=== PATIENT | male | born 1990 | race Caucasian/White ===

== ENCOUNTER 2021-11-01 17:13 | Emergency (ER) | payer BC ==
[~2021-11-01] VITALS: Ht 185.4 cm; Wt 117.3 kg
[2021-11-01] MEDS ORDERED: KETOROLAC 30 MG/ML VIAL. IVP ONE (19:15)
[2021-11-01] MEDS ORDERED: IV NORMAL SALINE 1000ML BAG 1,000 ML IV ONE (19:15)
--- NOTE | 2021-11-01 19:23 | PHYS DOC ---
Past Medical History Additional Past Medical Histor: Hernia Past Surgical History: Other Additional Past Surgical Histo: Hernia repair, bilateral shoulder repair, gland removal from base of spine Smoking Status: Never Smoker Alcohol Use: Occasionally General Adult EDM: Chief Complaint: GI PROBLEM HPI: HPI: Patient is 31-year-old male who presents emergency department complaint of umbilical pain since this past Saturday. Patient reports a history of umbilical hernia repair 8 years ago. Patient reports similar pain to when he had a strangulated hernia 8 years ago. Patient denies fever or chills, denies nausea, vomiting, diarrhea. Patient reports he ate some pretzels while in the waiting room and does not feel nauseated nor has he vomited. Patient denies seeing blood in his stool or in his urine. Patient reports normal bowel movement today, denies increased urinary frequency, urinary burning, urinary pressure. Patient denies pain to his testicles. Patient denies lesions or rashes to his genitals. Patient denies back pain. Patient denies other physical complaints or physical concerns. Patient reports his pain is in 8 or 9 out of 10. Review of Systems: Review of Systems: 14 body systems of review of systems have been reviewed. See HPI for pertinent positives and negative responses, otherwise all other systems are negative, nonpertinent or noncontributory. Constitutional: Negative except as outlined in HPI above. Skin: Negative except as outlined in HPI above. Eyes: Negative except as outlined in HPI above. HENT: Negative except as outlined in HPI above. Respiratory: Negative except as outlined in HPI above. Cardiovascular: Negative except as outlined in HPI above. GI: Negative except as outlined in HPI above. : Negative except as outlined in HPI above. Musculoskeletal: Negative except as outlined in HPI above. Integument: Negative except as outlined in HPI above. Neurologic: Negative except as outlined in HPI above. Endocrine: Negative except as outlined in HPI above. Lymphatic: Negative except as outlined in HPI above. Psychiatric: Negative except as outlined in HPI above. Heart Score: C/O Chest Pain: No Risk Factors: Risk Factors: DM, Current or recent (<one month) smoker, HTN, HLP, family history of CAD, obesity. Risk Scores: Score 0 - 3: 2.5% MACE over next 6 weeks - Discharge Home Score 4 - 6: 20.3% MACE over next 6 weeks - Admit for Clinical Observation Score 7 - 10: 72.7% MACE over next 6 weeks - Early Invasive Strategies Allergies: Allergies: Allergies Coded Allergies Type Severity Reaction Last Updated Verified No Known Drug Allergies 11/01/21 No Physical Exam: PE: Constitutional: Well developed, well nourished, no acute distress, non-toxic appearance. 31-year-old male appears uncomfortable however remains in no apparent distress. HENT: Normocephalic, atraumatic. Eyes: Conjunctiva normal, no discharge. Neck: Normal range of motion, no stridor. Cardiovascular: No cyanosis appreciated, distal cap refill less than 2 seconds. Lungs & Thorax: Patient is in no respiratory distress, no audible adventitious lung sounds appreciated. Abdomen: Nontender, no abnormalities noted. Erythema with clearly demarcated borders around umbilicus. No masses appreciated per palpation, normal bowel sounds all 4 quadrants. There was lint debris in navel that was removed with cotton applicator swab. The skin is intact. No hernia appreciated. No lesions, skin is intact. No palpable abscess appreciated. No induration appreciated. Patient is obese with BMI of 34.1. Skin: Warm, dry, no erythema, no rash. See abdomen section for focused skin examination. Back: No tenderness, no deformities. Extremities: No tenderness, no cyanosis, no clubbing, ROM intact, no edema. Neurologic: Alert and oriented X 3, normal motor function, normal sensory function, no focal deficits noted. Psychologic: Affect normal, judgement normal, mood normal. Current Patient Data: Labs: Laboratory Tests Test 11/01/21 19:20 11/01/21 19:55 White Blood Count 9.1 x10^3/uL Red Blood Count 5.08 x10^6/uL Hemoglobin 15.5 g/dL Hematocrit 45.1 % Mean Corpuscular Volume 89 fL Mean Corpuscular Hemoglobin 30 pg Mean Corpuscular Hemoglobin Concent 34 g/dL Red Cell Distribution Width 13.5 % Platelet Count 171 x10^3/uL Neutrophils (%) (Auto) 65 % Lymphocytes (%) (Auto) 23 % Monocytes (%) (Auto) 10 % Eosinophils (%) (Auto) 1 % Basophils (%) (Auto) 1 % Neutrophils # (Auto) 5.9 x10^3/uL Lymphocytes # (Auto) 2.1 x10^3/uL Monocytes # (Auto) 0.9 x10^3/uL Eosinophils # (Auto) 0.1 x10^3/uL Basophils # (Auto) 0.0 x10^3/uL Sodium Level 143 mmol/L Potassium Level 3.9 mmol/L Chloride Level 103 mmol/L Carbon Dioxide Level 28 mmol/L Anion Gap 12 Blood Urea Nitrogen 14 mg/dL Creatinine 1.0 mg/dL Estimated GFR (Cockcroft-Gault) 86.1 BUN/Creatinine Ratio 14 Glucose Level 141 mg/dL Calcium Level 8.9 mg/dL Total Bilirubin 0.4 mg/dL Aspartate Amino Transf (AST/SGOT) 17 U/L Alanine Aminotransferase (ALT/SGPT) 52 U/L Alkaline Phosphatase 85 U/L C-Reactive Protein, Quantitative 10.0 mg/L Total Protein 7.3 g/dL Albumin 3.8 g/dL Albumin/Globulin Ratio 1.1 Lactic Acid Level 0.8 mmol/L Current Medications Medications (Trade) Dose Ordered Sig/Citlalli Route PRN Reason Start Time Stop Time Status Last Admin Dose Admin Sodium Chloride 1,000 ml @ 1,000 mls/hr 1X ONCE IV 11/01/21 19:15 11/01/21 20:14 DC 11/01/21 19:53 Ketorolac Tromethamine (Toradol 30mg Vial) 30 mg 1X ONCE IVP 11/01/21 19:15 11/01/21 19:16 DC 11/01/21 19:52 Iohexol (Omnipaque 300 Mg/ml) 75 ml 1X ONCE IV 11/01/21 20:15 11/01/21 20:16 DC Info (CONTRAST GIVEN -- Rx MONITORING) 1 each PRN DAILY PRN MC SEE COMMENTS 11/01/21 20:15 11/01/21 21:32 DC Iohexol (Omnipaque 300 Mg/ml) 100 ml STK-MED ONCE .ROUTE 11/01/21 20:07 11/01/21 20:07 DC Lidocaine/ Epinephrine (LIDOCAINE 1%-EPI 1:100,000 Multi-Dose) 20 ml 1X ONCE INJ 11/01/21 21:00 11/01/21 21:01 DC 11/01/21 21:00 Trimethoprim/ Sulfamethoxazole (Bactrim Ds) 1 tab 1X ONCE PO 11/01/21 21:00 11/01/21 21:01 DC 11/01/21 21:01 Bacitracin (Bacitracin Zinc Oint Pkt) 1 pkt 1X ONCE TP 11/01/21 21:30 11/01/21 21:31 DC Vital Signs: Vital Signs Date Time Temp Pulse Resp B/P (MAP) Pulse Ox O2 Delivery O2 Flow Rate FiO2 11/01/21 17:20 98.1 84 18 172/115 (134) 96 Room Air 98.1 EKG: EKG: [] Radiology/Procedures: Radiology/Procedures: REASON: Umbilical pain rule out strangulated hernia PROCEDURE: CT ABD PELV W/ IV CONTRST ONLY EXAM: CT Abdomen and Pelvis with IV contrast CLINICAL HISTORY: Umbilical pain rule out strangulated hernia COMPARISON: none TECHNIQUE: Helical CT of the abdomen and pelvis was performed following the administration of intravenous contrast. Axial, coronal and sagittal reformatted images were generated. PQRS compliance statement - One or more of the following individualized dose reduction techniques were utilized for this study: 1. Automated exposure control 2. Adjustment of the mA and/or kV according to patient size 3. Use of iterative reconstruction technique FINDINGS: Lower Chest: Lung bases are clear. Abdomen and Pelvis: Liver, gallbladder, spleen and adrenal glands are unremarkable. Pancreas is unremarkable. No biliary dilatation. Symmetric nephrograms. No focal renal lesion. No hydronephrosis. No hydroureter. Bladder is unremarkable. Moderate colonic stool content. No small or large bowel dilatation. No bowel obstruction. No abdominal or pelvic lymphadenopathy. Abdominal pelvic ascites. A 2.9 x 1.8 x 1.4 cm peripherally enhancing low attenuating collection seen in the periumbilical region suspicious for abscess or phlegmon. Associated infiltration seen. Bones: No aggressive osseous lesion is seen. IMPRESSION: Small fluid collection with associated infiltration is seen in the periumbilical region suspicious for small abscess or phlegmon. No ventral abdominal hernia is identified. Electronically signed by: Eliot Greco MD (11/01/2021 8:36 PM) [facility] Course & Med Decision Making: Course & Med Decision Making Pertinent Labs and Imaging studies reviewed. (See chart for details) 31-year-old male, vital signs reviewed, presents to the emergency department soon umbilicus pain. Physical examination concerning for cellulitic infection of abdomen focused around umbilicus versus other abdominal process, will order CBC, CMP, CRP, 1 L normal saline, saline lock, 30 mg Toradol, CT abdomen pelvis with IV contrast. Will reevaluate after period of time. Patient has returned from CT, pending results, reevaluation of the patient, patient remains nontoxic in appearance, no apparent distress, patient reports pain relief at rest however does elicit a 6-7 pain when trying to sit up or stand. Discussed with patient pending CT results will review when completed. CT results nonconcerning for ventral hernia however does find area of fluid abscess versus phlegmon consistent with area of concern of abdomen just superior to umbilicus. ED attending physician Dr. Delcid recommended consulting with general surgeon to review case. Called and discussed patient case and ED work-up with general surgeon Dr. Minerva zabala who recommended I&D procedure. Reviewed Dr. Gorman's recommendations with ED attending physician Dr. Delcid. Dr. Delcid examined patient with bedside ultrasound, is agreeable with Dr. Gorman's recommendations. Discussed ED planning for I&D procedure with patient who is amenable to I&D procedure. See I&D note. There was no purulent material expressed or found during I&D procedure, incision site cleansed and dressed with bacitracin and bandage by ED nursing staff. discussed with patient findings, diagnosis phlegmon of subcu tissue abdomen to superior to umbilicus. Will start on Bactrim DS, pain medications, discussed strict follow-up with primary care when patient returns home to his state of residence this coming Saturday. Discussed strict return to ER precautions and concerns. Discussed wound care of incision site. Discussed signs and symptoms of wound healing process, worsening of symptoms. Patient denies pain of the abdominal infection site. All patient questions were reviewed and answered. P atient gave verbal understanding of and is amenable to ED discharge planning. Discussed with the patient all findings and diagnostic testing as well as the need to follow-up with their primary care provider for further evaluation and treatment or return to the ED if any new or worsening symptoms. Strict return precautions were also discussed at length, the patient voiced understanding and agreement with the discharge planning. The patient was nontoxic in appearance, in no apparent distress, and hemodynamically stable at the time of disposition. Dragon Disclaimer: Dragon Disclaimer: This electronic medical record was generated, in whole or in part, using a voice recognition dictation system. Incision and Drainage Time: 2100 Confirmed : Patient, procedure, side, and site correct. Consent: Patient has given verbal consent for I&D procedure of possible abscess just superior to umbilicus at 12 o'clock position.. Indication: CT result concerning for subcu abscess versus phlegmon. Performed by: Morris Turner CONSUMER AFFAIRS MANAGER-C Supervision: Dr. Delcid was available for consult regarding the critical aspects of the procedure, incision, and post procedure exam. Preprocedure exam: Circulation, motor, and sensory intact. Procedural sedation: Not indicated. Description Location: Abdomen just superior to umbilicus 12 o'clock position. Anesthesia: Achieved with 3 cc 1% lidocaine with epinephrine. Preparation: Sterile field established, skin prepped with Betadine solution. Procedure The patient was positioned appropriately. An incision was then made over the area of concern guided by bedside ultrasound. Using a #11 blade scalpel. Technique: No fluid collection found during manually decompression, wound pro bed, no fluid collection found with decompression attempt of loculations with curved forcep. Drainage : Scant amount of serosanguineous fluid expressed, there was no purulent material expressed. Post procedure exam : Circulation, motor, sensory examination intact. Patient tolerated : Well. Complications: No purulent material expressed, most likely phlegmon. Follow-up: Home care instructions given. Total time: 15 minutes. Departure Departure Impression: Primary Impression: Phlegmon Disposition: 01 HOME / SELF CARE / HOMELESS Condition: GOOD Referrals: NO PCP (PCP) Patient Instructions: Wound Care, [id number] Additional Instructions: You were seen today in the emergency department for pain around your bellybutton area. Lab work was drawn and did not show concerning findings of systemic infectious process. There was some concern you may have a hernia however the CT scan revealed an infection just above your bellybutton opening. This was expl ored with a scalpel incision after injecting anesthetic pain medication, there was no infectious abscess however there is still a localized infectious process that we call a phlegmon. You were started on an antibiotic that you will take twice a day for the next 10 days. I am prescribing you pain medications for your abdominal discomfort. I am also prescribing you some Polysporin that you will place over the wound that was created during the exploration of this infection. Please cleanse 3 times daily with soap and water and apply the antibiotic ointment and a bandage until healed. It is very important that you follow-up with your primary care physician when you return home to your state of residence this weekend. Please return to the emergency department for worsening symptoms or other concerns. Thank you for visiting our Emergency Department. It was a pleasure taking care of you today in the emergency department and we appreciate you trusting us with your care. If any additional problems come up don't hesitate to return to visit us. Please follow up with your primary care provider so they can plan additional care if needed and know about the problem that you had. If symptoms worsen come back to the Emergency Department. Any concerning symptoms that start such as chest pain, shortness of air, weakness or numbness on one side of the body, running high fevers or any other concerning symptoms return to the ER. EMERGENCY DEPARTMENT GENERAL DISCHARGE INSTRUCTIONS Thank you for coming to [facility] Emergency Department (ED) today and trusting us with you care. We trust that you had a positive experience in our Emergency Department. If you wish to speak to the department management, you may call the Director at [phone]. YOUR FOLLOW UP INSTRUCTIONS ARE FOLLOWS: 1. Do you have a private Doctor? If you do not have a private doctor, please ask for a resource list of physicians or clinics that may be able to assist you with follow up care. 2. The Emergency Physicain has interpreted your x-rays. The X-Ray specialist will also review them. If there is a change in the findings, you will be notified in 48 hours when at all possible. 3. A lab test or culture has been done, your results will be reviewed and you will be notified if you need a change in treatment. ADDITIONAL INSTRUCTIONS AND INFORMATION: 1. Your care today has been supervised by a physician who is specially trained in emergency care. Many problems require more than one evaluation for a complete diagnosis and treatment. We recommend that you schedule your follow up appointment as recommended to ensure complete treatment of you illness or injury. If you are unable to obtain follow up care and continue to have a problem, or if your condition worsens, we recommend that you return to the ED. 2. We are not able to safely determine your condition over the phone nor are we able to give sound medical advice over the phone. For these safety reasons, if you call for medical advice we will ask you to come to the ED for further evaluation. 3. If you have any questions regarding these discharge instructions please call the ED at [phone]. SAFETY INFORMATION: In the interest of safety, wellness, and injury prevention; we encourage you to wear your sealbelt, if you smoke; quite smoking, and we encourage family to use a protective helmet for bicycling and other sporting events that present an increased risk for head injury. IF YOUR SYMPTOMS WORSEN OR NEW SYMPTOMS DEVELOP, OR YOU HAVE CONCERNS ABOUT YOUR CONDITION; OR IF YOUR CONDITION WORSENS WHILE YOU ARE WAITING FOR YOUR FOLLOW UP APPOINTMENT; EITHER CONTACT YOUR PRIMARY CARE DOCTOR, THE PHYSICIAN WHOSE NAME AND NUMBER YOU WERE GIVEN, OR RETURN TO THE ED IMMEDIATELY. Scripts Hydrocodone Bit/Acetaminophen (HYDROCODONE-APAP 5-325 ) 1 Tab Tablet 1 TAB PO PRN Q6HRS PRN for PAIN, #6 TAB 0 Refills Prov: MORRIS COYNE APRN 11/01/21 Bacitracin/Polymyxin B Sulfate (POLYSPORIN TOPICAL OINT) 28.3 Gm Oint...g. 1 RIDGE TP TID for WOUND CARE, #1 EACH Apply to incision site 3 times a day after cleansing with mild soap and water. Prov: MORRIS COYNE APRN 11/01/21 Ibuprofen (IBUPROFEN) 600 Mg Tablet 600 MG PO PRN Q6HRS PRN for INFLAMMATION, #20 TAB 0 Refills Prov: MORRIS COYNE APRN 11/01/21 Sulfamethoxazole/Trimethoprim (BACTRIM DS TABLET) 1 Each Tablet 1 TAB PO BID for skin infection for 10 Days, #20 TAB 0 Refills Prov: MORRIS COYNE APRN 11/01/21 MORRIS COYNE APRN Nov 01, 2021 19:23
[2021-11-01 19:34] LABS: BASO % 1 % (0-3); EOS # 0.1 x10^3/uL (0.0-0.7); EOS % 1 % (0-3); HEMATOCRIT 45.1 % (39.0-53.0); HEMOGLOBIN 15.5 g/dL (13.0-17.5); LYMPH # 2.1 x10^3/uL (1.0-4.8); LYMPH % 23 % (24-48); MEAN CORPUSCULAR HEMOGLOBIN 30 pg (25-35); MEAN CORPUSCULAR HGB CONC 34 g/dL (31-37); MEAN CORPUSCULAR VOLUME 89 fL (79-100); MONO # 0.9 x10^3/uL (0.0-1.1); MONO % 10 % (0-9); NEUT # 5.9 x10^3/uL (1.8-7.7); NEUT % 65 % (31-73); PLATELET COUNT 171 x10^3/uL (140-400); RED BLOOD COUNT 5.08 x10^6/uL (4.30-5.70); RED CELL DISTRIBUTION WIDTH 13.5 % (11.5-14.5); WHITE BLOOD COUNT 9.1 x10^3/uL (4.0-11.0)
[2021-11-01 19:46] LABS: CALCIUM 8.9 mg/dL (8.5-10.1); GFR 86.1; POTASSIUM 3.9 mmol/L (3.5-5.1)
[2021-11-01 19:52] LABS: ALBUMIN 3.8 g/dL (3.4-5.0); ALBUMIN/GLOBULIN RATIO 1.1 (1.0-1.7); TOTAL BILIRUBIN 0.4 mg/dL (0.2-1.0); TOTAL PROTEIN 7.3 g/dL (6.4-8.2)
[2021-11-01] MEDS ORDERED: IOHEXOL 300 MG/ML 100ML VIAL. ONE (20:07)
[2021-11-01] MEDS ORDERED: IOHEXOL 300 MG/ML 100ML VIAL. IV ONE (20:15)
[2021-11-01] MEDS ORDERED: CONTRAST GIVEN. MC PRN (20:15)
--- NOTE | 2021-11-01 20:38 | RAD ---
EXAM: CT Abdomen and Pelvis with IV contrast CLINICAL HISTORY: Umbilical pain rule out strangulated hernia COMPARISON: none TECHNIQUE: Helical CT of the abdomen and pelvis was performed following the administration of intrave nous contrast. Axial, coronal and sagittal reformatted images were generated. PQRS compliance statement - One or more of the following individualized dose reduction techniques wer e utilized for this study: 1. Automated exposure control 2. Adjustment of the mA and/or kV according to patient size 3. Use of iterative reconstruction technique FINDINGS: Lower Chest: Lung bases are clear. Abdomen and Pelvis: Liver, gallbladder, spleen and adrenal glands are unremarkable. Pancreas is unremarkable. No biliary dilatation. Symmetric nephrograms. No focal renal lesion. No hydronephrosis. No hydroureter. Bladder is unremarka ble. Moderate colonic stool content. No small or large bowel dilatation. No bowel obstruction. No abdominal or pelvic lymphadenopathy. Abdominal pelvic ascites. A 2.9 x 1.8 x 1.4 cm peripherally enhancing low attenuating collection seen in the periumbilical nikolay on suspicious for abscess or phlegmon. Associated infiltration seen. Bones: No aggressive osseous lesion is seen. IMPRESSION: Small fluid collection with associated infiltration is seen in the periumbilical region suspicious fo r small abscess or phlegmon. No ventral abdominal hernia is identified. Electronically signed by: Eliot Greco MD (11/01/2021 8:36 PM) [facility]
[2021-11-01] MEDS ORDERED: LIDOCAINE 1%/EPI 1:100,000 20 ML VIAL. INJ ONE (21:00)
[2021-11-01] MEDS ORDERED: SMZ/TMP 800/160MG TABLET. PO ONE (21:00)
[2021-11-01] MEDS ORDERED: BACI28.34 TP (21:16)
[2021-11-01] MEDS ORDERED: SULF1TAB24 PO (21:16)
[2021-11-01] MEDS ORDERED: HYDR-2761 PO (21:16)
[2021-11-01] MEDS ORDERED: IBUP-1007 PO (21:16)
[2021-11-01 21:30] VITALS: BP 163/109
[2021-11-01] MEDS ORDERED: BACITRACIN TOPICAL OINT PACKET. TP ONE (21:30)
== END 2021-11-01 21:31 | disposition home or self-care (01) ==
LOC: ER 17:13
DX: L02.211 Cutaneous abscess of abdominal wall (principal); Z98.890 Other specified postprocedural states
CPT/HCPCS: 10061; 36415; 74177; 80053; 83605; 85025; 86140; 96361; 96374; 99285; J1885; J3490; J7030